=== PATIENT | female | born 1975 | race Caucasian/White ===

== ENCOUNTER 2022-02-01 06:35 | Emergency (ER) | payer MEDICAID, OTHER ==
[~2022-02-01] VITALS: Ht 160 cm; Wt 58.0 kg
[2022-02-01 06:36] VITALS: BP 150/100
[2022-02-01] MEDS ORDERED: SODIUM CHLORIDE 0.9% 1,000 ML IV ONE (07:15)
== END 2022-02-01 08:17 | disposition left against medical advice (07) ==
LOC: EMS 06:37
DX: K62.89 Other specified diseases of anus and rectum (principal); R00.0 Tachycardia, unspecified; F41.9 Anxiety disorder, unspecified; I10 Essential (primary) hypertension; F17.210 Nicotine dependence, cigarettes, uncomplicated; Z87.19 Personal history of other diseases of the digestive system; Z88.5 Allergy status to narcotic agent; Z88.0 Allergy status to penicillin
CPT/HCPCS: 93005; 99281; Z7502